=== PATIENT | male | born 1940 | race Caucasian/White ===

== ENCOUNTER 2020-04-13 10:20 | Inpatient (IN) | payer MEDICARE, OTHER ==
[~2020-04-13] VITALS: Ht 167.6 cm; Wt 89.0 kg
[2020-04-13 10:48] LABS: BASOPHILS % (AUTO) 0.2 % (0.0-5.0); HEMATOCRIT 40.2 % (42-54); LYMPHOCYTES % (AUTO) 11.5 % (21.0-51.0); MEAN CORPUSCULAR HEMOGLOBIN 29.3 pg (27.0-33.0); MEAN CORPUSCULAR HGB CONC 33.1 g/dL (32.0-36.0); MEAN CORPUSCULAR VOLUME 88.5 fL (79-99); MONOCYTES % (AUTO) 7.3 % (3.0-13.0); PLATELET COUNT (AUTO) 214 K/uL (130-400); RED BLOOD CELL COUNT(AUTO) 4.54 MIL/uL (4.50-6.20); RED CELL DISTRIBUTION WIDTH 13.6 % (11.0-15.5); WHITE BLOOD COUNT (AUTO) 10.7 K/uL (4.8-10.8)
[2020-04-13 10:56] LABS: CARBON DIOXIDE 23 mmol/L (21-32); CHLORIDE 101 mmol/L (101-111); CREATININE 2.2 mg/dL (0.5-1.5); GLOMERULAR FILTR. RATE CALC 31 mL/min (>60); GLUCOSE,RANDOM 92 mg/dL (70-105); POTASSIUM 3.8 mmol/L (3.5-5.1); SODIUM SERUM 134 mmol/L (136-145); UREA NITROGEN, BLOOD 31 mg/dL (7-18)
[2020-04-13 11:02] LABS: INR 0.97 (0.85-1.15); PARTIAL THROMBOPLASTIN TIME 29.2 SEC (26.3-35.5); PROTHROMBIN TIME 10.5 SEC (9.6-11.6)
[2020-04-13 11:09] LABS: ALANINE AMINOTRANSFERASE 20 U/L (12-78); ALBUMIN 3.1 g/dL (3.5-5.0); ASPARTATE AMINOTRANSFERASE 43 U/L (10-37); BILIRUBIN,TOTAL 1.1 mg/dL (0.2-1.0); CREATINE KINASE, TOTAL 161 U/L (21-232); MYOGLOBIN 341 ng/mL (10-92); TOTAL PROTEIN, SERUM 7.2 g/dL (6.0-8.3); TROPONIN I < 0.04 ng/mL (0.00-0.06)
[2020-04-13 11:53] LABS: ERYTHROCYTE SEDIMENTATION RATE 50 MM/HR (0-20)
[2020-04-13] MEDS ORDERED: NITROGLYCERIN 0.4 MG SL TAB SL PRN (12:15)
[2020-04-13] MEDS ORDERED: DOXYCYCLINE 100MG+NS 250ML IV SCH (12:15)
[2020-04-13] MEDS ORDERED: HYDRALAZINE HCL 20 MG/ML VIAL IV PRN (12:15)
[2020-04-13] MEDS ORDERED: ACETAMINOPHEN-CODEINE 300/30MG TAB PO PRN ×2 (12:15)
[2020-04-13] MEDS ORDERED: ONDANSETRON HCL 4 MG/2 ML VIAL IV PRN (12:15)
[2020-04-13] MEDS ORDERED: LACTULOSE 20 GM/30 ML UDCUP PO PRN (12:15)
[2020-04-13] MEDS ORDERED: MAG HYDROX/AL HYDROX/SIMETH ES 30 ML SUSP UDCUP PO PRN (12:15)
[2020-04-13] MEDS ORDERED: ZOLPIDEM TARTRATE 5 MG TAB PO PRN (12:15)
[2020-04-13] MEDS ORDERED: DIPHENHYDRAMINE HCL 25 MG CAPSULE PO PRN (12:15)
[2020-04-13] MEDS ORDERED: DiphenhydrAMINE HCL 50 MG/ML VIAL IV PRN (12:15)
[2020-04-13] MEDS ORDERED: ERGOCALCIFEROL (VITAMIN D2) 50,000 UNIT CAPSULE PO SCH (12:15)
[2020-04-13] MEDS ORDERED: ACETAMINOPHEN 325 MG TAB PO PRN ×2 (12:15)
[2020-04-13] MEDS ORDERED: ALBUTEROL INHALER 90MCG/INH IH ONE (12:25)
[2020-04-13] MEDS ORDERED: ENOXAPARIN SODIUM 100 MG/1 ML SQ ONE (12:25)
[2020-04-13] MEDS ORDERED: METHYLPREDNISOLONE SOD SUCC 125MG/2ML VIAL ONE (12:25)
[2020-04-13] MEDS ORDERED: CEFTRIAXONE SODIUM 1 GM ONE (12:26)
[2020-04-13] MEDS ORDERED: FAMOTIDINE/PF 20 MG/2 ML VIAL IV ONE (12:26)
[2020-04-13] MEDS ORDERED: ERGOCALCIFEROL (VITAMIN D2) 50,000 UNIT CAPSULE ONE (14:00)
[2020-04-13] MEDS ORDERED: IVERMECTIN 3 MG TAB PO ONE (15:00)
[2020-04-13 16:20] VITALS: BP 119/68
--- NOTE | 2020-04-13 17:34 | NUR ---
RECEIVED PT FROM ED AT 1620 NAD UPON ARRIVING TO UNIT. VS STABLE. WILL START ADMISSION AT THIS TIME
[2020-04-13] MEDS: DEXAMETHASONE SOD PHOSPHATE 4 MG/ML 1ML VIAL IVP SCH (17:38)
[2020-04-13] MEDS: PHARMACY COMMUNICATION MISC SCH ×2 (17:39→21:15)
[2020-04-13] MEDS: CEFTRIAXONE SODIUM 1 GM IVP SCH ×2 (17:39→23:58)
[2020-04-13] MEDS: DOXYCYCLINE 100MG+NS 250ML 250 ML IV SCH ×2 (17:39→21:18)
[2020-04-13] MEDS: BENZONATATE 100 MG CAPSULE PO SCH ×2 (17:40→21:18)
[2020-04-13 19:35] VITALS: BP 114/75
--- NOTE | 2020-04-13 19:58 | NUR ---
Clarify Convalescent plasma: On-call hospitalist OZZIE Stern clarified regarding nursing communication order of convalescent plasma transfusion. Verbalized to transfused if patient agrees with it. Explained to pt. Pt agreed and verbalized understanding.
[2020-04-13] MEDS ORDERED: FAMOTIDINE 20MG TAB 20 MG TAB PO SCH (21:00)
[2020-04-13] MEDS: ACETYLCYSTEINE 600 MG CAPSULE PO SCH (21:17)
[2020-04-13 23:03] VITALS: BP 126/73
[2020-04-14 03:06] VITALS: BP 121/61
[2020-04-14] MEDS: PHARMACY COMMUNICATION MISC SCH (05:15)
[2020-04-14 05:58] LABS: BASOPHILS % (AUTO) 0.1 % (0.0-5.0); HEMATOCRIT 35.7 % (42-54); MEAN CORPUSCULAR HEMOGLOBIN 29.3 pg (27.0-33.0); MEAN CORPUSCULAR HGB CONC 33.6 g/dL (32.0-36.0); MEAN CORPUSCULAR VOLUME 87.3 fL (79-99); MONOCYTES % (AUTO) 4.3 % (3.0-13.0); NEUTROPHILS % (AUTO) 85.9 % (40.0-77.0); PLATELET COUNT (AUTO) 200 K/uL (130-400); RED BLOOD CELL COUNT(AUTO) 4.09 MIL/uL (4.50-6.20); RED CELL DISTRIBUTION WIDTH 13.5 % (11.0-15.5); WHITE BLOOD COUNT (AUTO) 7.6 K/uL (4.8-10.8)
[2020-04-14 06:07] LABS: ALANINE AMINOTRANSFERASE 24 U/L (12-78); ALBUMIN 2.8 g/dL (3.5-5.0); ASPARTATE AMINOTRANSFERASE 42 U/L (10-37); BILIRUBIN,TOTAL 0.7 mg/dL (0.2-1.0); CARBON DIOXIDE 17 mmol/L (21-32); CHLORIDE 105 mmol/L (101-111); CREATININE 0.9 mg/dL (0.5-1.5); GLOMERULAR FILTR. RATE CALC 86 mL/min (>60); GLUCOSE,RANDOM 117 mg/dL (70-105); LACTATE DEHYDROGENASE 361 U/L (81-234); POTASSIUM 3.9 mmol/L (3.5-5.1); SODIUM SERUM 135 mmol/L (136-145); TOTAL PROTEIN, SERUM 6.9 g/dL (6.0-8.3); UREA NITROGEN, BLOOD 32 mg/dL (7-18)
--- NOTE | 2020-04-14 06:55 | NUR ---
Convalescent Plasma 2 units of convalescent plasma given per hospital protocol. Completed as ordered. No transfusion reaction noted. Tolerated well. Distress / discomfort not noted. Monitored accordingly.
[2020-04-14] MEDS: DOXYCYCLINE 100MG+NS 250ML 250 ML IV SCH ×2 (07:56→19:50)
[2020-04-14] MEDS: ASCORBIC ACID 500 MG TAB PO SCH (07:57)
[2020-04-14] MEDS: ACETYLCYSTEINE 600 MG CAPSULE PO SCH ×2 (07:57→19:51)
[2020-04-14] MEDS: ZINC SULFATE 220 CAPSULE PO SCH (07:57)
[2020-04-14] MEDS: BENZONATATE 100 MG CAPSULE PO SCH ×3 (07:57→19:50)
[2020-04-14] MEDS: ENOXAPARIN SODIUM 40 MG/0.4 ML SYRINGE SQ SCH (07:57)
[2020-04-14 08:00] VITALS: BP 124/47
[2020-04-14] MEDS: PANTOPRAZOLE SODIUM 40 MG TABLET.DR PO SCH (10:15)
[2020-04-14] MEDS ORDERED: PANTOPRAZOLE SODIUM 40 MG TABLET.DR ONE (10:28)
[2020-04-14] MEDS: CEFTRIAXONE SODIUM 1 GM IVP SCH (11:37)
[2020-04-14] MEDS: DEXAMETHASONE SOD PHOSPHATE 4 MG/ML 1ML VIAL IVP SCH (11:37)
[2020-04-14 12:56] VITALS: BP 136/78
--- NOTE | 2020-04-14 14:58 | NUR ---
NATAS[facility] PLAN PATIENT IN COVID UNIT. CHECKED SLEEPING IN ROOM. NO ANSWER ON PHONE. Addendum: 04/14/20 at 1500 by LAMIN FLORES RN CM Amended: Links added.
[2020-04-14] MEDS: GUAIFENESIN-DM 200/20 MG 10 ML PO PRN ×2 (15:51→19:50)
[2020-04-14 16:39] VITALS: BP 132/65
[2020-04-14] MEDS ORDERED: COMPOUND IV REFRIGERATED 1 EACH IVSOLN MISC PRN (17:00)
[2020-04-14] MEDS ORDERED: REMDESIVIR (EUA) 520 200 MG in SODIUM CHLORIDE 0.9% 250 ML IV ONE (17:00)
[2020-04-14 20:35] VITALS: BP 143/73
[2020-04-15] MEDS: CEFTRIAXONE SODIUM 1 GM IVP SCH ×2 (00:09→13:40)
[2020-04-15 01:44] VITALS: BP 131/56
[2020-04-15 04:17] VITALS: BP 141/79
[2020-04-15 06:01] LABS: ALBUMIN 2.8 g/dL (3.5-5.0); BILIRUBIN,DIRECT 0.1 mg/dL (0.0-0.3); BILIRUBIN,TOTAL 0.8 mg/dL (0.2-1.0); CREATININE 1.5 mg/dL (0.5-1.5); CRP QUANTITATIVE 68.9 mg/L (0.00-9.0); POTASSIUM 5.3 mmol/L (3.5-5.1); TOTAL PROTEIN, SERUM 7.4 g/dL (6.0-8.3)
[2020-04-15 06:18] LABS: BASOPHILS % (AUTO) 0.1 % (0.0-5.0); HEMATOCRIT 40.6 % (42-54); LYMPHOCYTES % (AUTO) 5.9 % (21.0-51.0); MEAN CORPUSCULAR HEMOGLOBIN 29.3 pg (27.0-33.0); MEAN CORPUSCULAR VOLUME 88.6 fL (79-99); MONOCYTES % (AUTO) 8.3 % (3.0-13.0); PLATELET COUNT (AUTO) 256 K/uL (130-400); RED BLOOD CELL COUNT(AUTO) 4.58 MIL/uL (4.50-6.20); RED CELL DISTRIBUTION WIDTH 13.4 % (11.0-15.5); WHITE BLOOD COUNT (AUTO) 21.9 K/uL (4.8-10.8)
[2020-04-15 08:00] VITALS: BP 126/61
[2020-04-15] MEDS: DOXYCYCLINE 100MG+NS 250ML 250 ML IV SCH (08:14)
[2020-04-15] MEDS: ENOXAPARIN SODIUM 40 MG/0.4 ML SYRINGE SQ SCH (08:14)
[2020-04-15] MEDS: ASCORBIC ACID 500 MG TAB PO SCH (08:15)
[2020-04-15] MEDS: PANTOPRAZOLE SODIUM 40 MG TABLET.DR PO SCH (08:15)
[2020-04-15] MEDS: ACETYLCYSTEINE 600 MG CAPSULE PO SCH ×2 (08:15→20:21)
[2020-04-15] MEDS: ZINC SULFATE 220 CAPSULE PO SCH (08:15)
[2020-04-15] MEDS: BENZONATATE 100 MG CAPSULE PO SCH ×3 (08:18→20:21)
[2020-04-15 11:51] VITALS: BP 143/71
[2020-04-15] MEDS: DEXAMETHASONE SOD PHOSPHATE 4 MG/ML 1ML VIAL IVP SCH (13:40)
[2020-04-15] MEDS: PHARMACY COMMUNICATION MISC SCH (16:43)
[2020-04-15] MEDS: REMDESIVIR (EUA) 520 100 MG in SODIUM CHLORIDE 0.9% 250 ML IV SCH (16:43)
[2020-04-15 16:52] VITALS: BP 148/86
[2020-04-15 20:22] VITALS: BP 139/82
[2020-04-15] MEDS: ENOXAPARIN SODIUM 100 MG/1 ML SQ SCH (20:22)
[2020-04-16] VITALS (7 sets, daily range): BP systolic 127–168; BP diastolic 72–86
[2020-04-16 04:45] LABS: BASOPHILS % (AUTO) 0.2 % (0.0-5.0); HEMATOCRIT 41.4 % (42-54); LYMPHOCYTES % (AUTO) 5.4 % (21.0-51.0); MEAN CORPUSCULAR HEMOGLOBIN 29.1 pg (27.0-33.0); MEAN CORPUSCULAR HGB CONC 33.1 g/dL (32.0-36.0); MEAN CORPUSCULAR VOLUME 88.1 fL (79-99); MONOCYTES % (AUTO) 6.6 % (3.0-13.0); NEUTROPHILS % (AUTO) 86.8 % (40.0-77.0); PLATELET COUNT (AUTO) 209 K/uL (130-400); RED CELL DISTRIBUTION WIDTH 13.3 % (11.0-15.5); WHITE BLOOD COUNT (AUTO) 13.5 K/uL (4.8-10.8)
[2020-04-16 05:15] LABS: ALBUMIN 2.8 g/dL (3.5-5.0); BILIRUBIN,DIRECT 0.3 mg/dL (0.0-0.3); BILIRUBIN,TOTAL 0.9 mg/dL (0.2-1.0); CREATININE 1.3 mg/dL (0.5-1.5); CRP QUANTITATIVE 118.4 mg/L (0.00-9.0); POTASSIUM 4.3 mmol/L (3.5-5.1); TOTAL PROTEIN, SERUM 7.3 g/dL (6.0-8.3)
[2020-04-16] MEDS: PHARMACY COMMUNICATION MISC SCH (06:00)
--- NOTE | 2020-04-16 06:29 | NUR ---
PAged DR, eZb Paz regarding critical d-dimer results. Pending call back
--- NOTE | 2020-04-16 08:30 | NUR ---
AM ASSESSMENT PT LAYING IN BED, HOB ELEVATED 30 DEGREES, RESTING. A/O X 3. SOB ON EXERTION. NO DISTRESS NOTED. O2 NRBM @ 15L FIO2 100%. CONT PULSE OX. DENIES PAIN OR DISCOMFORT. TELE: SR. DENIES N/V AND/OR DIARRHEA SINCE YESTERDAY. UP W/ASSISTANCE. INSTRUCTED TO CALL FOR ASSISTANCE. CALL JORGE LUIS W/IN REACH.
[2020-04-16] MEDS: BENZONATATE 100 MG CAPSULE PO SCH ×3 (09:14→20:25)
[2020-04-16] MEDS: ZINC SULFATE 220 CAPSULE PO SCH (09:14)
[2020-04-16] MEDS: ASCORBIC ACID 500 MG TAB PO SCH (09:14)
[2020-04-16] MEDS: PANTOPRAZOLE SODIUM 40 MG TABLET.DR PO SCH (09:14)
[2020-04-16] MEDS: ENOXAPARIN SODIUM 100 MG/1 ML SQ SCH ×2 (09:15→20:25)
[2020-04-16] MEDS: DEXAMETHASONE SOD PHOSPHATE 4 MG/ML 1ML VIAL IVP SCH (09:16)
[2020-04-16] MEDS: ACETYLCYSTEINE 600 MG CAPSULE PO SCH ×2 (09:16→20:25)
--- NOTE | 2020-04-16 11:08 | NUR ---
NATASHA PLAN PATIENT IN COVID UNIT NRB 15. BOTH NUMBERS ON FACE SHEET NOT WORKING. BAM WILL CONTINUE TO FOLLOW. Addendum: 04/16/20 at 1110 by LAMIN FLORES RN CM Amended: Links added.
--- NOTE | 2020-04-16 13:42 | NUR ---
MEDICATION TESSALON PEARLS REFUSED BY PT. PT STATES NOT BEING ABLE TO SWALLOW PILLS @ THIS TIME. PT GETS ANXIOUS WHEN TAKING PILLS. REINFORCED & REMINDED PT, 9 AM PILLS WERE TOLERATED OK THIS AM. REINFORCED NEED TO TAKE PILLS SLOWLY.
[2020-04-16] MEDS: REMDESIVIR (EUA) 520 100 MG in SODIUM CHLORIDE 0.9% 250 ML IV SCH (16:48)
--- NOTE | 2020-04-16 21:04 | NUR ---
NOTE PT REPORTS THAT HE HAS NOT BEEN ABLE TO VOID ALL DAY. C/O LOWER ABD PAIN, HR 90S, SpO2 85-88%, RR 25. BLADDER SCANNED THE PT. READING SHOWED >299 MLS. 16 FR CATHETER WAS INSERTED USING ASEPTIC TECHNIQUE. CONFIRMED PT DID NOT HAVE ANY ALLERGIES TO IODINE PRIOR TO CLEANING INSERTION SITE. HART CATHETER WAS INSERTED LUBRICATED WITH JELLY. ONCE IN PLACE, BALLOON WAS INFLATED TO 10 CC AND SECURED TO RIGHT THIGH. HART BAG HANGING BELOW THE LEVEL OF THE PT ON A NON-MOVEABLE PART OF BED FRAME. 1200 ML DARK YELLOW URINE WAS NOTED IN BAG AFTER INSERTION. PT INSTANTLY REPORTED RELIEF OF PRESSURE AND NO LONGER HAD LOWER ABD PAIN. HR 86, SpO2 94%. NAVEEN PARRY NP AWARE, ORDERS WERE GIVEN FOR CATHETER TO REMAIN IN PLACE FOR NOW.
[2020-04-17] VITALS (7 sets, daily range): BP systolic 131–158; BP diastolic 76–94
[2020-04-17] MEDS ORDERED: CLONIDINE HCL 0.1 MG TABLET PO PRN (04:00)
[2020-04-17] MEDS ORDERED: CLONIDINE HCL 0.1 MG TABLET ONE (04:05)
[2020-04-17] MEDS: PHARMACY COMMUNICATION MISC SCH (06:00)
[2020-04-17 06:42] LABS: ALBUMIN 2.8 g/dL (3.5-5.0); BILIRUBIN,DIRECT 0.4 mg/dL (0.0-0.3); TOTAL PROTEIN, SERUM 7.3 g/dL (6.0-8.3)
--- NOTE | 2020-04-17 08:30 | NUR ---
AM ASSESSMENT PT LAYING IN BED, HOB ELEVATED 30 DEGREES, RESTING. A/O X 3. SOB ON EXERTION. O2 NRBM @ 15L FIO2 100%. NO DISTRESS NOTED. DENIES CHEST PAIN OR DISCOMFORT. TELE: SR. DENIES N/V AND/OR DIARRHEA. 16 FR FC PATENT & DRAINING. BR W/BRP. INSTRUCTED TO CALL FOR ASSISTANCE. CALL JORGE LUIS W/IN REACH.
[2020-04-17] MEDS: ZINC SULFATE 220 CAPSULE PO SCH (08:55)
[2020-04-17] MEDS: PANTOPRAZOLE SODIUM 40 MG TABLET.DR PO SCH (08:55)
[2020-04-17] MEDS: ASCORBIC ACID 500 MG TAB PO SCH (08:56)
[2020-04-17] MEDS: ACETYLCYSTEINE 600 MG CAPSULE PO SCH ×2 (08:56→19:37)
[2020-04-17] MEDS: BENZONATATE 100 MG CAPSULE PO SCH ×3 (08:57→19:52)
[2020-04-17] MEDS: ENOXAPARIN SODIUM 100 MG/1 ML SQ SCH ×2 (08:58→19:37)
[2020-04-17] MEDS: DEXAMETHASONE SOD PHOSPHATE 4 MG/ML 1ML VIAL IVP SCH (08:58)
[2020-04-17] MEDS ORDERED: LABETALOL 20 MG/4 ML DISP.SYRIN IV PRN (09:45)
[2020-04-17] MEDS ORDERED: FUROSEMIDE 10 MG/ML 4ML VIAL IVP SCH (13:00)
[2020-04-17] MEDS: REMDESIVIR (EUA) 520 100 MG in SODIUM CHLORIDE 0.9% 250 ML IV SCH (16:41)
--- NOTE | 2020-04-17 19:55 | NUR ---
STATUS UPDATE(PM SHIFT) AAOX3,MILDLY ANXIOUS WHEN MASK OFF FOR A SECOND. REASSURED,SETTLES QUICKLY , DENIES ACUTE PAIN ,EXCEPT FOR MILD DISCOMFORT WITH POSITION IN BED , REPOSITIONED HOB ELEVATED DESIRED. V/S STABLE OTHERWISE Addendum: 04/17/20 at 2351 by BRIAN MOLINA RN RN Amended: Links added.
--- NOTE | 2020-04-17 21:10 | NUR ---
PO MED ADMINISTRATION PO MEDS TAKEN WITH DIFFICULTY,COUGH WITH SWALLOWING,WET GURGLY VOCAL QUALITY,FREQUENT THROAT CLEARING, NO ACUTE DISTRESS ,ABLE TO BRING MEDS DOWN WITH MODERATE EFFORT Addendum: 04/18/20 at 0000 by BRIAN MOLINA RN RN Amended: Links added.
--- NOTE | 2020-04-17 23:50 | NUR ---
ORAL MUCOSA ASSESSMENT TONGUE DRY/CAKING ,WHITE PATCHES,NOTED SWABBED WITH MOISTENED TOOTHETTES. Addendum: 04/18/20 at 0442 by BRIAN MOLINA RN RN Amended: Links added.
[2020-04-18] VITALS (8 sets, daily range): BP systolic 97–151; BP diastolic 52–92
[2020-04-18 03:33] LABS: APPEARANCE,URINE Clear (CLEAR); BILIRUBIN,URINE Negative (NEGATIVE); COLOR,URINE Yellow (YELLOW); GLUCOSE, URINE (UA) Negative (NEGATIVE); KETONES,URINE Negative (NEGATIVE); LEUKOCYTE ESTERASE ,URINE Small (NEGATIVE); NITRATE,URINE Negative (NEGATIVE); OCCULT BLOOD,URINE Moderate (NEGATIVE); PROTEIN,URINE POS 1+ mg/dL (NEGATIVE)
[2020-04-18 03:44] LABS: BACTERIA,URINE None Seen /HPF (None Seen); MUCUS,URINE Rare LPF (None Seen); SQUAMOUS EPITHELIAL CELL,UR Rare /HPF (0-2)
[2020-04-18] MEDS: PHARMACY COMMUNICATION MISC SCH (05:04)
[2020-04-18 05:56] LABS: BASOPHILS % (AUTO) 0.3 % (0.0-5.0); HEMATOCRIT 46.8 % (42-54); LYMPHOCYTES % (AUTO) 4.9 % (21.0-51.0); MEAN CORPUSCULAR HEMOGLOBIN 29.1 pg (27.0-33.0); MEAN CORPUSCULAR HGB CONC 33.3 g/dL (32.0-36.0); MEAN CORPUSCULAR VOLUME 87.3 fL (79-99); MONOCYTES % (AUTO) 8.5 % (3.0-13.0); NEUTROPHILS % (AUTO) 85.2 % (40.0-77.0); PLATELET COUNT (AUTO) 301 K/uL (130-400); RED BLOOD CELL COUNT(AUTO) 5.36 MIL/uL (4.50-6.20); RED CELL DISTRIBUTION WIDTH 13.6 % (11.0-15.5)
[2020-04-18] MEDS ORDERED: LORAZEPAM 2 MG/ML 1 ML VIAL ONE (06:23)
[2020-04-18 06:29] LABS: BILIRUBIN,TOTAL 1.4 mg/dL (0.2-1.0); CREATININE 1.6 mg/dL (0.5-1.5); CRP QUANTITATIVE 153.3 mg/L (0.00-9.0); POTASSIUM 3.8 mmol/L (3.5-5.1)
[2020-04-18] MEDS ORDERED: LORAZEPAM 2 MG/ML 1 ML VIAL IVP SCH ×2 (06:30→09:53)
[2020-04-18] MEDS ORDERED: PHARMACY COMMUNICATION MISC SCH (06:45)
[2020-04-18] MEDS ORDERED: MAG/AL/SIMETH 30 ML+LIDO2% VISC+DIPHEN 75MG 30ML PO SCH ×3 (07:00)
[2020-04-18] MEDS ORDERED: COMPOUND PO MISCELLANEOUS 1 EACH MISC MISC PRN (07:00)
--- NOTE | 2020-04-18 08:15 | NUR ---
AM ASSESSMENT/STATUS PT LAYING IN BED. A/O X 3. SOB. PT RESTLESS. PT ANXIOUS. NRBM REMOVED BY PT. IV PULLED OUT BY PT. CATHETER TIP INTACT. NO BLEEDING @ IV SITE. PT PLACED BACK ON NRBM & PRONE POSITION @ THIS TIME. O2 SATS 70-LOW 80s. PT RESISTING TO LEAVE ON NRBM. EXPLAINED. Jasson CHACKO NP NOTIFIED OF PT'S STATUS. PT TO BE PLACED ON HFCL & NRBM. RESP THERAPY NOTIFIED. PT PLACED ON HFNC & NRBM BY RESP THERAPIST. O2 SATS UP TO 92-95%. PT REMOVING O2 MASK. PT CONT TO BE RESTLESS. PT REFUSING TO BE INTUBATED IF NEEDED. Jasson CHACKO NP ATTEMPTED TO UPDATE FAMILY OF PT'S CURRENT STATUS VIA TELEPHONE. CALL WENT STRAIGHT TO VOICEMAIL, NO RESPONSE FROM FAMILY. #20 PIV INSERTED TO RT WRIST. @ 0920 Jasson CHACKO NP IN PT'S RM. PT REFUSING TO POSS INTUBATION. PT AGREEING TO DNR/DNI STATUS. @ THIS TIME CALL PLACED TO DR GARCÍA BY Jasson CHACKO NP. UPDATED ON PT'S CURRENTS STATUS & REQUEST FOR DNR/DNI. PT AGAIN VOICED REQUEST FOR DNR/DNI. TO ENTER ORDER FOR DNR/DNI STATUS. @ 0975 MORPHINE 2 MG IVP GIVEN TO PT. @ 1000 LORAZEPAM 1 MG IVP GIVEN TO PT. @ 1020 PT STARTED ON PRECEDEX IV PER PROTOCOL.
[2020-04-18] MEDS: BENZONATATE 100 MG CAPSULE PO SCH (08:26)
[2020-04-18] MEDS: PANTOPRAZOLE SODIUM 40 MG TABLET.DR PO SCH (08:26)
[2020-04-18] MEDS: ACETYLCYSTEINE 600 MG CAPSULE PO SCH (08:26)
[2020-04-18] MEDS: DEXAMETHASONE SOD PHOSPHATE 4 MG/ML 1ML VIAL IVP SCH (08:26)
[2020-04-18] MEDS: ZINC SULFATE 220 CAPSULE PO SCH (08:26)
[2020-04-18] MEDS: ASCORBIC ACID 500 MG TAB PO SCH (08:26)
[2020-04-18] MEDS: ENOXAPARIN SODIUM 100 MG/1 ML SQ SCH (08:27)
[2020-04-18] MEDS ORDERED: FLUCONAZOLE 200 MG/NS 100 ML 100 ML IV SCH (09:00)
[2020-04-18] MEDS ORDERED: DEXMEDETOMIDINE HCL 200 MCG in SODIUM CHLORIDE 0.9% 50 ML IV STA (09:09)
[2020-04-18] MEDS ORDERED: MORPHINE SULFATE 2 MG/ML 1ML SYG IVP SCH (09:30)
[2020-04-18] MEDS ORDERED: MORPHINE SULFATE 2 MG/ML 1ML SYG ONE (09:35)
[2020-04-18] MEDS ORDERED: FUROSEMIDE 10 MG/ML 2ML VIAL IV SCH (10:00)
--- NOTE | 2020-04-18 11:08 | NUR ---
TIME OF PT ASYSTOLE @ THIS TIME PER ELEVATOR ERECTOR HELPER. PT DNR/DNI STATUS. PT PRONOUNCED @ THIS TIME BY Palmer [employer] DIRECTOR COMBAT PLANS OFFICER. PRIMARY MD TO BE NOTIFIED.
--- NOTE | 2020-04-18 11:10 | NUR ---
MD NOTIFICATION DR GARCÍA NOTIFIED OF PT'S PASSING. TO SIGN CERTIFICATE.
--- NOTE | 2020-04-18 11:10 | NUR ---
JESSE MOLINA CALLED @ THIS TIME. PT NOT A CANDIDATE FOR ORGAN/TISSUE DONATION.
--- NOTE | 2020-04-18 11:20 | NUR ---
FAMILY NOTIFICATION PT'S DAUGHTER NIECE, ADI, CALLED & NOTIFIED OF PT'S PASSING. INFORMED PT'S NIECE PT NOT A CANDIDATE FOR ORGAN DONATION PER [facility]. FAMILY DECLINED AUTOPSY @ THIS TIME. PT'S FAMILY TO CALL BACK W/ ARRANGEMENTS WHEN READY. CALL BACK # TO HUMAN PERFORMANCE CONSULTANT GIVEN.
[2020-04-18] MEDS ORDERED: DEXAMETHASONE SOD PHOSPHATE 4 MG/ML 1ML VIAL IVP SCH (21:00)
== END 2020-04-18 11:08 | disposition expired | DRG 177 ==
LOC: EDH 10:20 → EDHIP 12:14 → 2AH 17:23
PROVIDERS: ADMIT Internal Medicine; ATTEND Internal Medicine
PROC: XW033E5 Introduction of Remdesivir Anti-infective into Peripheral Vein, Percutaneous Approach, New Technology Group 5 (ICD-10-PCS; principal; 2020-04-14)
PROC: XW13325 Transfusion of Convalescent Plasma (Nonautologous) into Peripheral Vein, Percutaneous Approach, New Technology Group 5 (ICD-10-PCS; 2020-04-14)
PROC: 5A0935A Assistance with Respiratory Ventilation, Less than 24 Consecutive Hours, High Flow/Velocity Cannula (ICD-10-PCS; 2020-04-18)
DX: U07.1 COVID-19 (principal); J12.89 Other viral pneumonia; J96.01 Acute respiratory failure with hypoxia; N17.0 Acute kidney failure with tubular necrosis; J44.0 Chronic obstructive pulmonary disease with (acute) lower respiratory infection; Z66 Do not resuscitate; E87.6 Hypokalemia; F17.200 Nicotine dependence, unspecified, uncomplicated; K80.20 Calculus of gallbladder without cholecystitis without obstruction; Z79.899 Other long term (current) drug therapy
CPT/HCPCS: 36415; 71045; 71250; 74176; 80053; 80076; 81001; 82248; 82550; 82728; 82948; 83605; 83615; 83874; 83880; 84145; 84484; 85025; 85378; 85610; 85651; 85730; 86140; 86850; 86900; 86901; 86927; 87040; 87088; 87426; 93005; A4344; G0378; J0696; J1100; J1200; J1450; J1650; J1940; J2060; J2930; J3490; J7050